=== PATIENT | male | born 1990 | race Caucasian/White ===

== ENCOUNTER 2018-09-28 01:37 | Emergency (ER) | payer SELFPAY ==
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
[2018-09-28] MEDS ORDERED: Ampicillin/Sulbactam Na 3 GM in Sodium Chloride 0.9% 100 ML IV ONE (02:49)
[2018-09-28 04:08] VITALS: BP 128/91
== END 2018-09-28 03:54 | disposition left against medical advice (07) ==
LOC: MW.ED 01:37
DX: S06.0X9A Concussion with loss of consciousness of unspecified duration, initial encounter (principal); S02.609A Fracture of mandible, unspecified, initial encounter for closed fracture; Y08.89XA Assault by other specified means, initial encounter; Y92.481 Parking lot as the place of occurrence of the external cause
CPT/HCPCS: 70450; 70486; 96365; 99284; J0295; J7030